=== PATIENT | female | born 1965 | race Caucasian/White ===

== ENCOUNTER → 2017-04-02 | Outpatient (CLI) | payer BC | END | disposition home or self-care (01) | LOC: CFH 07:19 | PROVIDERS: ATTEND Family Medicine | DX: Z12.31 Encounter for screening mammogram for malignant neoplasm of breast (principal) | CPT/HCPCS: 77063; G0202 ==

== ENCOUNTER → 2018-03-08 | Outpatient (CLI) | payer OTHER | END | disposition home or self-care (01) | LOC: CFH 06:46 | PROVIDERS: ATTEND Internal Medicine Cardiovascular Disease | DX: R00.2 Palpitations (principal); R42 Dizziness and giddiness | CPT/HCPCS: 0399T; 93306 ==

== ENCOUNTER 2020-04-09 07:17 | Outpatient (CLI) | payer OTHER | END 2020-04-09 23:59 | disposition home or self-care (01) | LOC: CFH 07:17 | PROVIDERS: ATTEND Family Medicine | DX: Z12.31 Encounter for screening mammogram for malignant neoplasm of breast (principal) | CPT/HCPCS: 77063; 77067 ==